=== PATIENT | male | born 1950 | race Caucasian/White ===

== ENCOUNTER 2018-03-14 18:35 | Observation (INO) | payer OTHER ==
[~2018-03-14] VITALS: Ht 157.5 cm; Wt 78.6 kg
[~2018-03-14 18:35] MED LIST: ASPIR 8181 M1 PO; LOPRESSOR50 MG PO; MOTRIN800 MG PO; NITROSTAT0.4 MG SL; PROTONIX40 MG PO; SIMVASTATIN80 MG PO; ZETIA10 MG PO
[2018-03-14 19:10] LABS: HEMATOCRIT 41.4 % (38.0-50.0); HEMOGLOBIN 14.6 G/DL (12.5-16.6); MCH 33.6 PG (29.0-34.0); MCHC 35.3 G/DL (30.0-36.0); MCV 95.2 FL (86-99); PLATELET COUNT 190 K/uL (156-360); RBC DIS.WIDTH-CV 12.6 % (11.8-14.6); RBC DIS.WIDTH-SD 44.3 % (39-53); RED BLOOD COUNT 4.35 M/uL (4.00-5.50); WHITE BLOOD COUNT 8.4 K/uL (4.1-10.2)
[2018-03-14 19:19] LABS: CHLORIDE 103 mEq/L (99-109); POTASSIUM 3.9 mEq/L (3.7-5.4); SODIUM 138 mEq/L (136-147)
[2018-03-14 19:21] LABS: GLUCOSE 117 mg/dL (70-99)
[2018-03-14 19:25] LABS: CREATININE 1.2 mg/dL (0.6-1.3); GFR ESTIMATE (CALCULATED) > 59 mL/min/ (58.99-99999); UREA NITROGEN (BUN) 17 mg/dL (9-23)
[2018-03-14 19:30] LABS: TROP-I INTERPRETATION NEGATIVE; TROPONIN-I < 0.01 ng/mL (0.0-0.30)
[2018-03-14] MEDS ORDERED: BENZONATATE100 MG PO (20:42)
[2018-03-14] MEDS ORDERED: CRESTOR20 MG PO (20:43)
[2018-03-14] MEDS ORDERED: IBUPROFEN800 MG PO (20:43)
[2018-03-14] MEDS ORDERED: LEVOFLOXACIN500 MG PO (20:43)
[2018-03-14 20:50] LABS: MAGNESIUM 2.4 mg/dL (1.3-2.7)
[2018-03-15 01:30] LABS: TROP-I INTERPRETATION NEGATIVE; TROPONIN-I < 0.01 ng/mL (0.0-0.30)
[2018-03-15 07:19] LABS: TROP-I INTERPRETATION NEGATIVE; TROPONIN-I < 0.01 ng/mL (0.0-0.30)
[2018-03-15 07:30] LABS: HDL CHOLESTEROL 51 MG/DL (Desirable>=40); LDL CHOLESTEROL 82 mg/dL (Desirable<100); NON-HDL CHOLESTEROL 108 mg/dL (Desirable<160); TOTAL CHOLESTEROL 159 mg/dL (Desirable<200); TRIGLYCERIDES 132 MG/DL (Normal: <150)
[2018-03-15 09:53] VITALS: BP 141/67
[2018-03-15 15:34] VITALS: BP 110/59
[2018-03-15] MEDS ORDERED: MUCINEX600 MG PO (16:42)
[2018-03-15] MEDS ORDERED: IBUPROFEN800 MG PO (16:42)
[2018-03-15] MEDS ORDERED: NICOTINE PATCH1 EAC2 TD (16:48)
== END 2018-03-15 17:23 | disposition home or self-care (01) ==
LOC: EXP 18:35 → EME 18:35 → 4SOUTH 21:08 → EDOF 21:08 → ENRESERV 21:17 → 4SOUTH 03-15 09:35
PROVIDERS: Physician Assistant Medical
DX: R07.9 Chest pain, unspecified (principal); I25.10 Atherosclerotic heart disease of native coronary artery without angina pectoris; Z95.1 Presence of aortocoronary bypass graft; Z95.5 Presence of coronary angioplasty implant and graft; E78.5 Hyperlipidemia, unspecified; I11.9 Hypertensive heart disease without heart failure; R94.31 Abnormal electrocardiogram [ECG] [EKG]; J40 Bronchitis, not specified as acute or chronic; Z85.038 Personal history of other malignant neoplasm of large intestine; Z92.21 Personal history of antineoplastic chemotherapy; F17.210 Nicotine dependence, cigarettes, uncomplicated; Z82.49 Family history of ischemic heart disease and other diseases of the circulatory system; Z79.82 Long term (current) use of aspirin; E66.9 Obesity, unspecified; Z68.32 Body mass index [BMI] 32.0-32.9, adult
CPT/HCPCS: 71046; 80048; 80061; 83735; 84484; 85027; 85379; 93005; 99281; 99285; G0378; J1650